=== PATIENT | female | born 1950 | race Caucasian/White ===

== ENCOUNTER → 2018-05-12 | Outpatient (CLI) | payer MEDICARE | LOC: MC.RAD 09:11 | DX: Z12.31 Encounter for screening mammogram for malignant neoplasm of breast (principal) ==

== ENCOUNTER → 2019-05-31 | Outpatient (CLI) | payer MEDICARE | LOC: MC.RAD 11:13 | DX: Z12.31 Encounter for screening mammogram for malignant neoplasm of breast (principal) ==

== ENCOUNTER → 2020-07-15 | Outpatient (CLI) | payer MEDICARE | LOC: MC.RAD 06-07 14:45 | DX: Z12.31 Encounter for screening mammogram for malignant neoplasm of breast (principal) ==

== ENCOUNTER → 2021-08-18 | Outpatient (CLI) | payer MEDICARE | LOC: MC.RAD 11:30 | DX: Z12.31 Encounter for screening mammogram for malignant neoplasm of breast (principal) ==

== ENCOUNTER → 2022-10-02 | Outpatient (CLI) | payer MEDICARE | LOC: MC.RAD 09:44 | DX: Z12.31 Encounter for screening mammogram for malignant neoplasm of breast (principal) ==